=== PATIENT | female | born 2000 | race African-American/Black ===

== ENCOUNTER 2019-07-13 15:10 | Emergency (ER) | payer BC, SELFPAY ==
[2019-07-13] MEDS ORDERED: Lidocaine 1% (PF) 30 ML VIAL ONE (15:43)
[2019-07-13] MEDS ORDERED: Ketorolac Tromethamine 30 MG/ML VIAL ONE (15:43)
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
== END 2019-07-13 18:30 | disposition home or self-care (01) ==
LOC: ERS 15:10
DX: S16.1XXA Strain of muscle, fascia and tendon at neck level, initial encounter (principal); F41.9 Anxiety disorder, unspecified; Z79.899 Other long term (current) drug therapy; V59.9XXA Occupant (driver) (passenger) of pick-up truck or van injured in unspecified traffic accident, initial encounter
CPT/HCPCS: 72040; 72125; 96372; J1885; J2001